=== PATIENT | female | born 1995 | race Caucasian/White ===

== ENCOUNTER 2016-11-26 10:51 | Emergency (ER) | payer OTHER ==
[~2016-11-26] VITALS: Wt 59.5 kg
[~2016-11-26 10:51] MED LIST: DENIES MEDS; DIAZ5TAB4 PO; IBUP-1542 PO
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
[2016-11-26] MEDS ORDERED: IBUPROFEN 800 MG TAB PO ONE (11:30)
--- NOTE | 2016-11-26 11:41 | RADRPT ---
PROCEDURE: XR right shoulder. CLINICAL INDICATION: Pain TECHNIQUE: Axillary, Internal and external rotation views of the right shoulder were performed. COMPARISON: None. FINDINGS: There is normal osseous mineralization and alignment. No acute fracture or osseous lesion is identified. There are normal joints without evidence of arthritis or dislocation. The soft tissues are unremarkable. RPTAT: AA IMPRESSION: Unremarkable right shoulder. .Kaleb Keller MD, MD Date Time Electronically viewed and signed by .Kaleb Keller MD, on 11/26/2016 11:41 .S/
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
[2016-11-26] MEDS ORDERED: NAPR-260 PO (11:51)
[2016-11-26] MEDS ORDERED: ACET500C5 PO (11:51)
== END 2016-11-26 12:38 | disposition home or self-care (01) ==
LOC: FTE 10:51
DX: S49.91XA Unspecified injury of right shoulder and upper arm, initial encounter (principal); R07.9 Chest pain, unspecified; V47.6XXA Car passenger injured in collision with fixed or stationary object in traffic accident, initial encounter
CPT/HCPCS: 71010; 73030; 73080; Z7610

== ENCOUNTER 2019-03-18 12:00 | Emergency (ER) | payer OTHER ==
[~2019-03-18] VITALS: Ht 154.9 cm; Wt 58.1 kg
[~2019-03-18 12:00] MED LIST changes: +ACET500C5 PO; +DOCU-144 PO; +FAMO-96 PO; +NAPR-985 PO
[2019-03-18 12:34] VITALS: Ht 154.9 cm; Wt 58.1 kg
--- NOTE | 2019-03-18 14:00 | ERD ---
ER Documentation Chief Complaint Chief Complaint DIARRHEA WITH DARK/BLACK STOOLS. HX H. PYLORI W/ TREATMENT HPI 23-year-old female with a past medical history, history of H. pylori status post treatment with complaint of diarrhea with dark stools. States symptoms started around Sunday night has had several bouts of diarrhea which appeared dark to her. She has suffered from intermittent constipation and diarrhea for over the past year now. Was seen by her PMD approximately 2 months ago, treated for H. pylori, ultrasound of abdomen within normal limits. PMD decided to hold off on endoscopic evaluation given normal ultrasound at that time. She otherwise denies fevers, chills, lightheadedness, history of hemorrhoids, bright red blood per rectum, marysol pelvic pain, shortness of breath, dyspnea, nausea, vomiting, or symptoms. At time of evaluation patient with normal triage vital signs with no acute distress. ROS All systems reviewed and are negative except as per history of present illness. Medications Home Meds Active Scripts Docusate Sodium* (Colace*) 100 Mg Capsule, 100 MG PO TID for constipation, #30 CAP Prov:KHURRAM MORALES PA-C 03/18/19 Famotidine* (Pepcid*) 20 Mg Tablet, 20 MG PO BID for 4 Days, TAB Prov:KHURRAM MORALES PA-C 03/18/19 Acetaminophen* (Tylophen*) 500 Mg Capsule, 1 CAP PO Q6H PRN for PAIN AND OR ELEVATED TEMP, #30 CAP Prov:JOHN MONTEJOC 11/26/16 Naproxen* (Naprosyn*) 500 Mg Tablet, 500 MG PO BID PRN for PAIN AND/OR INFLAMMATION, #30 TAB Prov:JOHN MONTEJOC 11/26/16 Diazepam* (Diazepam*) 5 Mg Tablet, 5 MG PO Q6, #20 TAB Prov:LESTER ESQUIVEL MD 11/04/15 Ibuprofen* (Motrin*) 600 Mg Tab, 600 MG PO Q6, #20 TAB Prov:LESTER ESQUIVEL MD 11/04/15 Ibuprofen* (Motrin*) 600 Mg Tab, 600 MG PO Q6, #20 TAB Prov:ZELDA SUAREZ MD 04/27/15 Reported Medications [Denies Meds] No Conflict Check 06/25/10 Allergies Allergies: Coded Allergies: Penicillins (Verified Allergy, Mild, 11/26/16) PMhx/Soc History of Surgery: Yes (left knee sx) Anesthesia Reaction: No Hx Neurological Disorder: No Hx Respiratory Disorders: No Hx Cardiac Disorders: No Hx Psychiatric Problems: No Hx Miscellaneous Medical Probl: Yes (H Pylori) Hx Alcohol Use: No Hx Substance Use: No Hx Tobacco Use: No Smoking Status: Never smoker FmHx Family History: No diabetes, No coronary disease, No other Physical Exam Vitals Vital Signs Date Temp Pulse Resp B/P (MAP) Pulse Ox O2 O2 Flow FiO2 Time Delivery Rate 03/18/19 98.0 78 16 115/81 97 12:34 (92) Physical Exam Const: No acute distress Head: Atraumatic Eyes: Normal Conjunctiva ENT: Normal External Ears, Nose and Mouth. Neck: Full range of motion. No meningismus. Resp: Clear to auscultation bilaterally Cardio: Regular rate and rhythm, no murmurs Abd: Soft, non tender, non distended. Normal bowel sounds Skin: No petechiae or rashes Back: No midline or flank tenderness Ext: No cyanosis, or edema Neur: Awake and alert Psych: Normal Mood and Affect Result Diagram: 03/18/19 1315 Results 24 hrs Laboratory Tests Test 03/18/19 13:15 White Blood Count 4.6 10^3/ul Red Blood Count 4.91 10^6/ul Hemoglobin 13.3 g/dl Hematocrit 41.9 % Mean Corpuscular Volume 85.3 fl Mean Corpuscular Hemoglobin 27.1 pg Mean Corpuscular Hemoglobin Concent 31.7 g/dl Red Cell Distribution Width 13.3 % Platelet Count 275 10^3/UL Mean Platelet Volume 9.3 fl Immature Granulocytes % 0.200 % Neutrophils % 52.2 % Lymphocytes % 28.9 % Monocytes % 12.4 % Eosinophils % 5.4 % Basophils % 0.9 % Nucleated Red Blood Cells % 0.0 /100WBC Immature Granulocytes # 0.010 10^3/ul Neutrophils # 2.4 10^3/ul Lymphocytes # 1.3 10^3/ul Monocytes # 0.6 10^3/ul Eosinophils # 0.3 10^3/ul Basophils # 0.0 10^3/ul Nucleated Red Blood Cells # 0.0 10^3/ul Procedures/MDM 23-year-old female presents with complaint of diarrhea and dark stools. Given her symptoms of alternating diarrhea and constipation I suspect IBS. Patient is being cared for by PMD and probably would likely need further evaluation by speech GI specialist. This may include endoscopic evaluation and further evaluation and treatment if this indeed IBS or some other pathology. She otherwise would adequately stable with normal limit hemoglobin and lipase, not actively bleeding, no reported abdominal or pelvic pain. I have low suspicion for any acute intra-abdominal or intrapelvic process warranting further emergent care or work-up at this time such as imaging or further Rx. Patient advised to follow-up closely with her PMD. All questions answered. DISPOSITION PLAN: We discussed follow up with the patient's primary care doctor within 24 to 48 hours. Patient counseled regarding my diagnostic impression and care plan. Prior to discharge all questions answered. Pt agrees with treatment plan and understands strict return precautions. Precautionary instructions provided including instructions to return to the ER if not improving or for any worsening or changing symptoms or concerns. Disclaimer: Inadvertent spelling and grammatical errors are likely due to EHR/dictation software use and do not reflect on the overall quality of patient care. Also, please note that the electronic time recorded on this note does not necessarily reflect the actual time of the patient encounter. Departure Diagnosis: Primary Impression: Diarrhea Condition: Stable Patient Instructions: Irritable Bowel Syndrome Additional Instructions: Call your primary care doctor TOMORROW for an appointment during the next 2-3 days.See the doctor sooner or return here if your condition worsens before your appointment time. Your symptoms you should follow-up with your PMD with regards to question of needing to see a specialist such as a conveyor worker for continued work-up. You may require additional studies such as endoscopy. Or require additional treatments for your symptoms. KHURRAM MORALES PA-C Mar 18, 2019 14:00
[2019-03-18 14:11] VITALS: BP 106/68; PULSE 66; RESP 16
== END 2019-03-18 14:12 | disposition home or self-care (01) ==
LOC: FTE 12:00
DX: R19.7 Diarrhea, unspecified (principal)
CPT/HCPCS: 80053; 83690; 85025; Z7502; 99283